=== PATIENT | female | born 2000 | race Two or more races ===

== ENCOUNTER 2022-07-15 08:41 | Emergency (ER) | payer OTHER ==
[~2022-07-15] VITALS: Ht 157.5 cm; Wt 77.6 kg
== END 2022-07-15 11:29 | disposition home or self-care (01) ==
LOC: ER 08:41 → EMR PED 08:47
DX: N39.0 Urinary tract infection, site not specified (principal); E86.0 Dehydration; R30.0 Dysuria; Z20.822 Contact with and (suspected) exposure to COVID-19

== ENCOUNTER 2023-05-01 07:15 | Emergency (ER) | payer OTHER ==
[~2023-05-01] VITALS: Ht 160 cm; Wt 77.1 kg
== END 2023-05-01 11:34 | disposition home or self-care (01) ==
LOC: ER 07:15
DX: J06.9 Acute upper respiratory infection, unspecified (principal); R53.81 Other malaise; Z20.822 Contact with and (suspected) exposure to COVID-19

== ENCOUNTER 2023-09-19 09:17 | Emergency (ER) | payer OTHER ==
[~2023-09-19] VITALS: Ht 160 cm; Wt 68.0 kg
[2023-09-19 12:24] LABS: HEMATOCRIT 41.1 % (36.0-45.00); HEMOGLOBIN 14.4 g/dL (12.0-15.00); MEAN CELL VOLUME 93.2 fL (80.00-100.00); MEAN CORPUSCULAR HEMOGLOBIN 32.7 pg (27.00-32.0); MEAN CORPUSCULAR HGB CONC 35.1 g/dl (32.0-36.0); PLATELET COUNT 231 K/uL (150-450); RED BLOOD COUNT 4.41 M/uL (4.00-6.00)
[2023-09-19 12:36] LABS: CALCIUM 8.7 mg/dL (8.5-10.1); CREATININE SERUM 0.6 mg/dL (0.55-1.02); GFR 126.19; POTASSIUM 3.98 mEq/L (3.5-5.1)
[2023-09-19 14:36] LABS: PH,URINE 5.5 (5.0-8.0); URINE APPEARANCE Clear; URINE BILIRRUBIN Negative (NEGATIVE); URINE BLOOD Negative; URINE COLOR Yellow; URINE GLUCOSE Negative (NEGATIVE); URINE LEUKOCYTE Negative; URINE NITRATE Negative; URINE PROTEIN Negative (NEGATIVE); URINE UROBILINOGEN 0.2 E.U./dl
[2023-09-19 14:40] LABS: URINE BACTERIA 2886.5 uL (0.0-1933); URINE EPITHELIAL CELLS 22.4 uL (0.0-38.8); URINE RBC 2.8 uL (0.0-20.8); URINE WBC 7.4 uL (0.0-23.2)
== END 2023-09-19 16:14 | disposition home or self-care (01) ==
LOC: ER 09:17
PROVIDERS: General Practice
DX: K52.9 Noninfective gastroenteritis and colitis, unspecified (principal); Z20.822 Contact with and (suspected) exposure to COVID-19

== ENCOUNTER 2025-02-24 17:03 | Emergency (ER) | payer OTHER ==
[~2025-02-24] VITALS: Ht 157.5 cm; Wt 77.1 kg
[2025-02-24 17:07] VITALS: BP 140/88; O2SAT 99
[2025-02-24] MEDS ORDERED: PRENATABS FA T1 EACH (17:07)
[2025-02-24 19:11] LABS: HEMOGLOBIN 12.9 g/dL (12.0-15.00); MEAN CELL VOLUME 95.2 fL (80.00-100.00); MEAN CORPUSCULAR HEMOGLOBIN 32.3 pg (27.00-32.0); PLATELET COUNT 246 K/uL (150-450); RED BLOOD COUNT 3.99 M/uL (4.00-6.00); RED CELL DISTRIBUTION WIDTH 13.5 % (11.5-14.5)
[2025-02-24 19:51] LABS: PH,URINE 6.5 (5.0-8.0); URINE APPEARANCE Clear; URINE BILIRRUBIN Negative (NEGATIVE); URINE BLOOD Negative; URINE COLOR Yellow; URINE GLUCOSE Negative (NEGATIVE); URINE KETONE Trace (NEGATIVE); URINE LEUKOCYTE Negative; URINE NITRATE Negative; URINE PROTEIN Negative (NEGATIVE)
[2025-02-24 19:52] LABS: URINE BACTERIA 323.1 uL (0.0-1933); URINE EPITHELIAL CELLS 42.8 uL (0.0-38.8); URINE RBC 5.8 uL (0.0-20.8); URINE WBC 13.2 uL (0.0-23.2)
[2025-02-24 19:53] LABS: CREATININE SERUM 0.5 mg/dL (0.55-1.02); GFR 154.28; POTASSIUM 3.48 mEq/L (3.5-5.1)
== END 2025-02-24 21:48 | disposition home or self-care (01) ==
LOC: ER 17:04
PROVIDERS: Emergency Medicine
DX: Z34.90 Encounter for supervision of normal pregnancy, unspecified, unspecified trimester (principal); R10.2 Pelvic and perineal pain; Z3A.08 8 weeks gestation of pregnancy

== ENCOUNTER 2025-09-14 23:48 | Outpatient (CLI) | payer OTHER ==
[~2025-09-14] VITALS: Ht 154.9 cm; Wt 81.6 kg
[2025-09-14 23:15] VITALS: BP 123/65
[2025-09-14 23:18] VITALS: BP 123/65
[~2025-09-14 23:48] MED LIST: PRENATABS FA T1 EACH; RINGERS SOLUTION,LACTATED 1,000 ML IV SCH
[2025-09-15 01:03] LABS: URINE APPEARANCE Clear; URINE BACTERIA 299.9 uL (0.0-1933); URINE BILIRRUBIN Negative (NEGATIVE); URINE BLOOD Negative; URINE COLOR Yellow; URINE EPITHELIAL CELLS 8.1 uL (0.0-38.8); URINE GLUCOSE Negative (NEGATIVE); URINE KETONE Negative (NEGATIVE); URINE LEUKOCYTE Negative; URINE NITRATE Negative; URINE PROTEIN Negative (NEGATIVE); URINE UROBILINOGEN 0.2 E.U./dl; URINE WBC 4.2 uL (0.0-23.2)
[2025-09-15 01:24] LABS: URINE CAST 0.00 uL (0.0-1.40); URINE RBC 0.2 uL (0.0-20.8)
[2025-09-15 01:26] LABS: BASO % 0.1 % (0.1-1.2); EOS # 0.06 (0.04-0.54); EOS % 0.7 % (0.7-7.0); LYMPH # 1.38 (1.18-3.74); LYMPH % 15.3 % (19.3-53.1); MEAN PLATELET VOLUME 12.20 fl (9.4-12.4); MONO # 0.75 (0.24-0.82); MONO % 8.3 % (4.7-12.5); NEUT # 6.76 (1.56-6.13); NEUT % 75.2 % (34.0-71.1); RED CELL DISTRIBUTION WIDTH 12.6 % (11.6-14.4)
[2025-09-15 03:54] VITALS: BP 102/60
[2025-09-15 07:33] VITALS: BP 116/77
[2025-09-15 11:29] VITALS: BP 102/60
== END 2025-09-15 11:39 | disposition home or self-care (01) ==
LOC: OBS/DEL 23:48
PROVIDERS: Obstetrics & Gynecology; ATTEND Specialist
DX: O46.8X3 Other antepartum hemorrhage, third trimester (principal); Z3A.37 37 weeks gestation of pregnancy

== ENCOUNTER 2025-09-28 04:50 | Inpatient (IN) | payer OTHER ==
[~2025-09-28] VITALS: Ht 157.5 cm; Wt 88.9 kg
[2025-09-28] VITALS (10 sets, daily range): BP systolic 112–129; BP diastolic 63–77; O2SAT 99
[~2025-09-28 04:50] MED LIST changes: -RINGERS SOLUTION,LACTATED 1,000 ML IV SCH
[2025-09-28] MEDS ORDERED: PRENATABS RX T1 EACH PO (04:54)
[2025-09-28] MEDS ORDERED: RINGERS SOLUTION,LACTATED 1,000 ML IV SCH (05:00)
[2025-09-28 06:47] LABS: BASO % 0.1 % (0.1-1.2); EOS # 0.11 (0.04-0.54); EOS % 1.4 % (0.7-7.0); LYMPH # 1.71 (1.18-3.74); LYMPH % 21.4 % (19.3-53.1); MEAN PLATELET VOLUME 12.50 fl (9.4-12.4); MONO # 0.41 (0.24-0.82); MONO % 5.1 % (4.7-12.5); NEUT # 5.68 (1.56-6.13); NEUT % 71.1 % (34.0-71.1); RED CELL DISTRIBUTION WIDTH 14.2 % (11.6-14.4)
[2025-09-28 06:53] LABS: URINE APPEARANCE Clear; URINE BILIRRUBIN Negative (NEGATIVE); URINE BLOOD Negative; URINE COLOR Yellow; URINE GLUCOSE Negative (NEGATIVE); URINE KETONE Negative (NEGATIVE); URINE LEUKOCYTE Small; URINE NITRATE Negative; URINE PROTEIN Negative (NEGATIVE); URINE UROBILINOGEN 1.0 E.U./dl
[2025-09-28 06:57] LABS: URINE BACTERIA 2475.6 uL (0.0-1933); URINE EPITHELIAL CELLS 71.6 uL (0.0-38.8); URINE RBC 4.6 uL (0.0-20.8); URINE WBC 88.1 uL (0.0-23.2)
[2025-09-28 07:11] LABS: INR 0.94
[2025-09-28 07:19] LABS: URINE CAST 0.00 uL (0.0-1.40)
[2025-09-28 07:26] LABS: URINE CRYSTALS FEW /HPF
[2025-09-28 07:26] LABS: ALT/SGPT 15.0 U/L (12-78); AST/SGOT 11.0 U/L (15-37); BILIRUBIN TOTAL 0.26 mg/dL (0.3-1.2); BUN CREA RATIO 16.0 (7.0-25.0); CREATININE SERUM 0.51 mg/dL (0.55-1.02); GFR 149.44; GLOBULINA 3.4 G/DL (2.4-3.5); GLUCOSE FASTING 114.0 mg/dL (65-100); OSMOLALITY SERUM 279.0 MOSM/KG (275-295)
[2025-09-28] MEDS ORDERED: MISOPROSTOL 25 MCG/4 ML GEL.W.APPL ONE (07:57)
[2025-09-28] MEDS ORDERED: OXYTOCIN 500 ML IV SCH (08:45)
[2025-09-28] MEDS ORDERED: MORPHINE SULFATE 4 MG/ML CARTRIDGE IV ONE (14:45)
[2025-09-28] MEDS ORDERED: CHLORHEXIDINE GLUCONATE 120 ML BOTTLE TOP ONE ×2 (16:08→21:30)
[2025-09-28] MEDS ORDERED: OXYTOCIN 20 UNITS/1000ML RL PIGGYBAG IV ONE (16:08)
[2025-09-28] MEDS ORDERED: ERYTHROMYCIN BASE OPHT 1GM EACH TUBE OP ONE ×2 (16:08→21:30)
[2025-09-28] MEDS ORDERED: LIDOCAINE HCL 1% 10ML VIAL ONE (16:08)
[2025-09-29 00:07] VITALS: BP 116/71
[2025-09-29 07:29] VITALS: BP 97/60
[2025-09-29 22:11] VITALS: BP 119/73
[2025-09-30 01:22] VITALS: BP 124/70
[2025-09-30 08:00] VITALS: BP 113/71
== END 2025-09-30 18:18 | disposition home or self-care (01) | DRG 807 ==
LOC: LDR → OB/GYN 18:22
PROVIDERS: ADMIT Specialist; ATTEND Specialist
PROC: 10E0XZZ Delivery of Products of Conception, External Approach (ICD-10-PCS; principal; 2025-09-28)
PROC: 0UQG7ZZ Repair Vagina, Via Natural or Artificial Opening (ICD-10-PCS; 2025-09-28)
PROC: 4A1HXCZ Monitoring of Products of Conception, Cardiac Rate, External Approach (ICD-10-PCS; 2025-09-28)
DX: O71.4 Obstetric high vaginal laceration alone (principal); Z37.0 Single live birth; Z3A.39 39 weeks gestation of pregnancy